=== PATIENT | female | born 1945 | race Caucasian/White ===

== ENCOUNTER 2016-11-03 08:02 | Day surgery (SDC) | payer OTHER, MEDICARE ==
[~2016-11-03] VITALS: Ht 160 cm; Wt 73.9 kg
[~2016-11-03 08:02] MED LIST: ALEVE220 M2 PO; ATORVASTATIN CA20 MG PO; B-50 COMPLEX1 EACH PO; BALANCE B-501 EAC1 PO; BENADRYL25 MG PO; BIOTIN 5000MCG PO; BISACODYL5 MG PO; CLARITIN,ALAVAR10 MG PO; COUMADIN7.5 MG PO; DOXYCYCLINE HY100 MG PO; FOLIC ACID1 MG PO; GABAPENTIN300 MG PO; IRON325 M1 PO; LISINOPRIL20 MG PO; LO-DOSE ASPIRIN81 M1 PO; MAGNESIUM250 MG PO; METHIMAZOLE5 MG PO; METHOTREXATE2.5 MG PO; NEURONTIN300 MG PO; OXYCODONE HCL5 MG PO; OXYCONTIN10 MG PO; POTASSIUM CHLO10 ME4 PO; PRILOSEC OTC20 MG PO; PROAIR HFA8.5 GM IH; SULFASALAZINE500 M1 PO; SULFAZINE500 M1 PO; TAPAZOLE5 MG PO; TENORMIN25 MG PO; TRAMADOL HCL50 MG PO; TRAZODONE HCL50 MG PO; ULTRAM50 MG PO; VISINE TEARS DR30 ML BOTH EYES; VITAMIN C500 M1 PO; VITAMIN D2000 UNIT PO; XARELTO10 MG PO; ZESTRIL20 MG PO
== END 2016-11-03 09:35 | disposition home or self-care (01) ==
LOC: PAIN 08:02 → SDC 08:45 → PAIN 08:45
DX: M47.812 Spondylosis without myelopathy or radiculopathy, cervical region (principal); M54.2 Cervicalgia; G89.29 Other chronic pain; M48.02 Spinal stenosis, cervical region; M25.78 Osteophyte, vertebrae; M06.9 Rheumatoid arthritis, unspecified; M47.816 Spondylosis without myelopathy or radiculopathy, lumbar region; I10 Essential (primary) hypertension; Z88.0 Allergy status to penicillin; E66.3 Overweight; Z68.27 Body mass index [BMI] 27.0-27.9, adult; Z79.891 Long term (current) use of opiate analgesic; F17.210 Nicotine dependence, cigarettes, uncomplicated
CPT/HCPCS: J1030; J2250; J3010; S0020

== ENCOUNTER 2016-11-10 09:12 | Day surgery (SDC) | payer OTHER, MEDICARE ==
[~2016-11-10] VITALS: Ht 160 cm; Wt 73.9 kg
== END 2016-11-10 10:36 | disposition home or self-care (01) ==
LOC: PAIN 09:12 → SDC 10:00 → PAIN 10:00
DX: M47.812 Spondylosis without myelopathy or radiculopathy, cervical region (principal); M06.9 Rheumatoid arthritis, unspecified; F17.200 Nicotine dependence, unspecified, uncomplicated; I10 Essential (primary) hypertension; E78.5 Hyperlipidemia, unspecified; Z88.2 Allergy status to sulfonamides; Z91.09 Other allergy status, other than to drugs and biological substances
CPT/HCPCS: J1030; J2250

== ENCOUNTER 2017-02-16 10:59 | Day surgery (SDC) | payer OTHER, MEDICARE ==
[~2017-02-16] VITALS: Ht 160 cm; Wt 68.0 kg
[2017-02-16] MEDS ORDERED: TRAZODONE HCL50 MG PO (11:22)
== END 2017-02-16 12:37 | disposition home or self-care (01) ==
LOC: PAIN 10:59 → SDC 11:30 → PAIN 12:37
DX: M47.812 Spondylosis without myelopathy or radiculopathy, cervical region (principal); M06.9 Rheumatoid arthritis, unspecified; M17.0 Bilateral primary osteoarthritis of knee; F17.200 Nicotine dependence, unspecified, uncomplicated; E66.3 Overweight; Z68.31 Body mass index [BMI] 31.0-31.9, adult; M47.816 Spondylosis without myelopathy or radiculopathy, lumbar region; I10 Essential (primary) hypertension; E78.5 Hyperlipidemia, unspecified; Z88.0 Allergy status to penicillin; Z88.2 Allergy status to sulfonamides
CPT/HCPCS: J1030; J2250; J3010; S0020

== ENCOUNTER 2017-02-23 08:02 | Day surgery (SDC) | payer OTHER, MEDICARE ==
[~2017-02-23] VITALS: Ht 160 cm; Wt 68.0 kg
== END 2017-02-23 09:30 | disposition home or self-care (01) ==
LOC: PAIN 08:02 → SDC 08:30 → PAIN 08:30
DX: M47.812 Spondylosis without myelopathy or radiculopathy, cervical region (principal); M54.2 Cervicalgia; G89.29 Other chronic pain; M48.02 Spinal stenosis, cervical region; M06.9 Rheumatoid arthritis, unspecified; I10 Essential (primary) hypertension; E66.3 Overweight; Z68.31 Body mass index [BMI] 31.0-31.9, adult; F17.200 Nicotine dependence, unspecified, uncomplicated; Z88.0 Allergy status to penicillin; Z79.891 Long term (current) use of opiate analgesic
CPT/HCPCS: J1030; J2250; J3010; S0020

== ENCOUNTER 2017-06-15 10:46 | Day surgery (SDC) | payer OTHER, MEDICARE ==
[~2017-06-15 10:46] MED LIST changes: +BIOTIN5 MG PO; +CLEOCIN300 MG PO; +DESYREL100 MG PO; -METHIMAZOLE5 MG PO
== END 2017-06-15 12:20 | disposition home or self-care (01) ==
LOC: PAIN 10:46 → SDC 11:15 → PAIN 11:20
DX: M25.551 Pain in right hip (principal); M47.816 Spondylosis without myelopathy or radiculopathy, lumbar region; M06.9 Rheumatoid arthritis, unspecified; M17.0 Bilateral primary osteoarthritis of knee; F17.200 Nicotine dependence, unspecified, uncomplicated; E78.5 Hyperlipidemia, unspecified; I10 Essential (primary) hypertension
CPT/HCPCS: 93005; J1030; J2250; S0020